=== PATIENT | male | born 1980 | race Caucasian/White ===

== ENCOUNTER 2022-01-18 16:20 | Emergency (ER) | payer OTHER, SELFPAY ==
--- NOTE | 2022-01-18 16:38 | XR_ITS ---
PROCEDURE INFORMATION: Exam: XR Left Ankle Exam date and time: 01/18/22 04:56 PM Age: 41 years old Clinical indication: Pain; Ankle; Left TECHNIQUE: Imaging protocol: Radiologic exam of the Left ankle. Views: 3 or more views. COMPARISON: CR XR FOOT LT MIN 3V 01/18/22 04:54 PM FINDINGS: Bones/joints: Nondisplaced fracture of the lateral malleolus and posterior malleolus left ankle. Mortise widened laterally. Soft tissues: Soft tissue swelling over the lateral malleolus. IMPRESSION: 1. Nondisplaced fracture of the lateral malleolus and posterior malleolus left ankle. 2. Mortise widened laterally. 3. Soft tissue swelling over the lateral malleolus.
--- NOTE | 2022-01-18 16:38 | XR_ITS ---
PROCEDURE INFORMATION: Exam: XR Left Foot Exam date and time: 01/18/22 04:54 PM Age: 41 years old Clinical indication: Pain; Foot; Left TECHNIQUE: Imaging protocol: Radiologic exam of the Left foot. Views: 3 or more views. COMPARISON: No relevant prior studies available. FINDINGS: Bones/joints: Normal. Soft tissues: Soft tissue swelling of the left forefoot. IMPRESSION: Soft tissue swelling of the left forefoot.
[2022-01-18 17:27] VITALS: BP 149/98; PULSE 98; RESP 19; TEMP 36.8; O2SAT 98; BMI 23.7
--- NOTE | 2022-01-18 17:37 | EXP.UTC ---
Discharge Plan Referrals Follow up/Referrals: Cruz Francis [Primary Care Provider] - See instructions Sharath Malave JR, MD [Physician] - See instructions Debbie Garcia PA [Physician Staff Appraiser] - See instructions (Call office on Friday morning to get appointment for Friday to see Debbie CRAMER for CT of ankle/foot then further instructions per Debbie CRAMER) Activity Restrictions/Add. Instructions Additional Instructions/Restrictions: Follow up in the Orthopedic office on Friday, call the office in the morning and let them know that Dr Malave wanted you to follow up in the office on Friday with Debbie CRAMER for CT scan *No weight bearing *RICE, Rest the extremity, Ice 15-20 minutes 3-4 times daily, Compress- wear the beny wrap as discussed as much as possible to help reduce swelling and pain, Elevate the extremity when at rest *Orthoglass is for support and help control swelling, Be sure that is not to tight but not to loose either Use crutches to get around *Elevate when resting? *Ibuprofen 600-800mg every 6-8 hours as needed for pain an inflammation. If need something more can take Tylenol in between doses of Ibuprofen to help Immediately follow up with your family doctor for new or worsening of symptoms, or no noticeable improvement over the next 3-5 days Clinical Impressions Clinical Impression: Fracture of ankle Stand Alone Forms Stand Alone Forms: Work/School Release Instructions Patient Instructions: How To Perform RICE (Rest, Ice, Compress, Elevate), How to Use Crutches Discharge ED Provider: Josi Blackwell [facility] [place] General Stated complaint: [id number]@Home injured L foot Mode of Arrival: Ambulatory Source of Information: Patient Limitations: No Limitations Time Seen by Provider: 01/18/22 17:37 Description of Symptoms (Recalled from Triage Doc. by RN): Pt c/o injury to lt foot/ankle last friday while jogging up a hill and slipped in the grass HEENT Symptoms (Recalled from RN notes): No Resp Symptoms (Recalled from RN notes): No Skin Symptoms (Recalled from RN notes): No MS Symptoms (Recalled from RN notes): Yes (Lt foot/ankle injury) Functional Status (Recalled from RN notes): n/a History of Present Illness Provider Complaint: Patient states that he was running up a hill on Friday that was wet with dew chasing a puppy and he slipped and fell State that he thinks he may have stepped in a hole or something and he twisted his left ankle States that he has been having pain, swelling and bruising ever since States that today swelling and bruising worse so he came in Related Data Allergies Allergy/AdvReac Type Severity Reaction Status Date / Time PCN (PENICILLIN) Allergy Unknown Uncoded 04/22/17 14:57 Worker's Comp Is this a Worker's Comp case?: No PFSH PFSH Social History Smoking Status: Unknown if ever smoked alcohol intake: never current occupational status: other Travel in the last 8 weeks: None ROS Obtained: Yes All systems reviewed & no additional complaints except as documented and Yes Systems reviewed as appropriate & no additional complaints except as documented Cardiovascular Cardiovascular: Reports system reviewed and no additional complaints, except as documented and Reports as per HPI Respiratory Respiratory: Reports system reviewed and no additional complaints, except as documented and Reports as per HPI Musculoskeletal Musculoskeletal: Reports system reviewed and no additional complaints, except as documented, Reports as per HPI and Reports other (Pain, swelling and bruising to left ankle after falling on Friday) Physical Exam General General appearance: alert and in no apparent distress Respiratory Respiratory exam: Present normal lung sounds bilaterally; Absent respiratory distress or wheezes Cardiovascular Cardiovascular exam: Present regular rate, normal rhythm and normal heart sounds Expanded Lower Extremity Exam Left: Ankle exam: Present tendern
[2022-01-18 18:20] VITALS: BP 149/98; PULSE 98; RESP 19; TEMP 36.8; O2SAT 98
== END 2022-01-18 18:20 | disposition home or self-care (01) ==
PROVIDERS: Emergency Provider Nurse Practitioner; PCP Pediatrics
DX: S82.65XA Nondisplaced fracture of lateral malleolus of left fibula, initial encounter for closed fracture (principal); W18.39XA Other fall on same level, initial encounter
CPT/HCPCS: 73610; 73630; 99212; G0463